=== PATIENT | male | born 1950 | race Caucasian/White ===

== ENCOUNTER 2017-02-10 10:04 | Emergency (ER) | payer MEDICAID ==
[~2017-02-10] VITALS: Ht 162.6 cm; Wt 77.1 kg
[2017-02-10 11:15] VITALS: BP 154/71
== END 2017-02-10 12:04 | disposition home or self-care (01) ==
LOC: ER 10:04
DX: K13.0 Diseases of lips (principal); F17.210 Nicotine dependence, cigarettes, uncomplicated